=== PATIENT | male | born 1945 | race Caucasian/White ===

== ENCOUNTER 2022-01-13 16:37 | Emergency (ER) | payer MEDICARE, BC ==
[2022-01-13] MEDS ORDERED: Acetaminophen 500 MG Tab PO ONE (16:55)
[2022-01-13] MEDS ORDERED: Sodium Chloride 0.9% 10 ML Syringe FLUSH PRN (16:57)
[2022-01-13 17:35] LABS: PTT,PARTIAL THROMBOPLSTIN TIME 26.3 SEC (20.5-30.9)
[2022-01-13 18:00] LABS: ANION GAP 14.2 mmol/L (5-15)
[2022-01-13] MEDS ORDERED: Meropenem 1 GM SDV IVPUSH STA (18:26)
[2022-01-13] MEDS ORDERED: Vancomycin 1 GM SDV ONE (19:08)
== END 2022-01-13 21:46 | disposition short-term general hospital (02) ==
LOC: VM.ED 16:37
DX: L03.116 Cellulitis of left lower limb (principal); E11.9 Type 2 diabetes mellitus without complications
CPT/HCPCS: 36415; 71045; 73700-LT; 80053; 81001; 83605; 83735; 84100; 84145; 84484; 85025; 85610; 85730; 86140; 87040; 87070; 87077; 87186; 93005; 93010; 96374; 96375; 99284; 99285-25; A9270-GY; J2185; J3370; J7050